=== PATIENT | male | born 1980 | race Caucasian/White ===

== ENCOUNTER 2016-10-27 22:36 | Emergency (ER) | payer OTHER ==
[~2016-10-27] VITALS: Ht 180.3 cm; Wt 79.1 kg
[~2016-10-27 22:36] MED LIST: FLEXERIL10 MG PO; KEFLEX500 MG PO; MOTRIN800 MG PO; NAPROSYN500 MG PO; NAPROXEN500 MG PO; NEURONTIN100 MG PO; TOPAMAX25 MG PO; ULTRAM50 MG PO
[2016-10-28 02:02] VITALS: BP 129/63
== END 2016-10-28 02:03 | disposition home or self-care (01) ==
LOC: EME 22:36
PROC: 2W3DX1Z Immobilization of Left Lower Arm using Splint (ICD-10-PCS; principal; 2016-10-28)
DX: G89.18 Other acute postprocedural pain (principal); Z98.890 Other specified postprocedural states; M79.602 Pain in left arm; M79.645 Pain in left finger(s); F17.200 Nicotine dependence, unspecified, uncomplicated
CPT/HCPCS: 99281; 99284